=== PATIENT | female | born 1980 | race American Indian/Alaskan Native ===

== ENCOUNTER 2023-02-27 19:08 | Emergency (ER) | payer BC ==
[~2023-02-27] VITALS: Ht 152.4 cm; Wt 90.3 kg
== END 2023-02-27 22:32 | disposition home or self-care (01) ==
LOC: ER 19:08
DX: I95.89 Other hypotension (principal); T67.5XXA Heat exhaustion, unspecified, initial encounter; Z91.013 Allergy to seafood; Z91.018 Allergy to other foods; Z91.041 Radiographic dye allergy status